=== PATIENT | male | born 1955 | race American Indian/Alaskan Native ===

== ENCOUNTER 2016-05-08 09:34 | Outpatient (CLI) | payer MEDICARE ==
--- NOTE | 2016-05-08 15:20 | Vascular Lab Report ---
ABDOMINAL AORTA DUPLEX EXAM: REASON FOR EXAM: Concern for abdominal aortic aneurysm with risk factors of abdominal pain. COMMENTS ON THE AORTA: The aorta is patent. No aneurysmal dilatation is noted. Mild atherosclerotic change is identified. The proximal aorta measures up to 2.2 x 2.5 cm. The mid aorta measures up to 1.3 x 1.62 cm. The distal aorta measures up to 1.4 x 1.36 cm. COMMENTS ON THE COMMON ILIAC ARTERIES: The common iliac arteries are patent. No aneurysmal dilatation is noted. Mild atherosclerotic change is identified. The celiac trunk and SMA are patent without evidence of stenosis IMPRESSION: No evidence of abdominal aortic aneurysm. No evidence of mesenteric ischemia.
== END 2016-05-08 09:35 | disposition home or self-care (01) ==
LOC: VAS 09:34
PROVIDERS: ATTEND Surgery Vascular Surgery
DX: R10.10 Upper abdominal pain, unspecified (principal)
CPT/HCPCS: 93979